=== PATIENT | male | born 1990 | race Hispanic/Latino ===

== ENCOUNTER 2018-09-04 08:26 | Emergency (ER) | payer SELFPAY ==
[~2018-09-04] VITALS: Ht 449.6 cm; Wt 93.0 kg
[2018-09-04 09:00] LABS: URINE BILIRUBIN - DIPSTICK NEGATIVE (NEGATIVE); URINE BLOOD DIPSTICK NEGATIVE (NEGATIVE); URINE COLOR YELLOW; URINE GLUCOSE - DIPSTICK NEGATIVE (NEGATIVE); URINE KETONE NEGATIVE (NEGATIVE); URINE LEUK ESTERASE NEGATIVE (NEGATIVE); URINE NITRITE - DIPSTICK NEGATIVE (Negative); URINE PROTEIN - DIPSTICK NEGATIVE (NEG-TRACE); URINE SPECIFIC GRAVITY 1.015; URINE UROBILINOGEN - DIPSTICK 0.2 E.U./dL (0.2)
[2018-09-04 09:04] LABS: URINE CLARITY CLEAR
[2018-09-04] MEDS ORDERED: KEFLEX500 M1 PO (09:11)
[2018-09-04] MEDS ORDERED: PYRIDIUM200 MG PO (09:11)
[2018-09-04 09:24] VITALS: BP 135/77
== END 2018-09-04 09:25 | disposition home or self-care (01) | DRG 690 ==
LOC: ED 08:26
PROVIDERS: Emergency Medicine
DX: N34.2 Other urethritis (principal); R30.0 Dysuria

== ENCOUNTER 2018-11-02 17:27 | Emergency (ER) | payer SELFPAY ==
[~2018-11-02] VITALS: Ht 175.3 cm; Wt 93.4 kg
[~2018-11-02 17:27] MED LIST: KEFLEX500 M1 PO; PYRIDIUM200 MG PO
[2018-11-02 18:25] LABS: HEMATOCRIT 46.9 % (39.0-50.0); HEMOGLOBIN 15.8 g/dl (14.0-18.0); IMMATURE GRANULOCYTES 0.4 % (0.0-5.0); MEAN CORPUSCULAR HGB 27.3 pG CALC (26.0-32.0); MEAN CORPUSCULAR HGB CONC 33.7 g/L CALC (32.0-36.0); NEUT# 5.13 thou/uL (1.82-7.42); RED BLOOD COUNT 5.79 mill/uL (4.70-6.10); RED CELL DISTRI WIDTH 13.2 % (11.5-15.5)
[2018-11-02 18:27] LABS: URINE BILIRUBIN - DIPSTICK NEGATIVE (NEGATIVE); URINE BLOOD DIPSTICK NEGATIVE (NEGATIVE); URINE COLOR YELLOW; URINE GLUCOSE - DIPSTICK NEGATIVE (NEGATIVE); URINE KETONE NEGATIVE (NEGATIVE); URINE LEUK ESTERASE NEGATIVE (NEGATIVE); URINE NITRITE - DIPSTICK NEGATIVE (Negative); URINE PROTEIN - DIPSTICK NEGATIVE (NEG-TRACE); URINE UROBILINOGEN - DIPSTICK 0.2 E.U./dL (0.2)
[2018-11-02 18:44] LABS: ALBUMIN 4.9 g/dL (3.2-5.0); ALKALINE PHOSPHATASE 105 u/l (38-126); ANION GAP 15 (6-22 (CALC)); BILIRUBIN, TOTAL 0.9 mg/dL (0.0-1.4); BUN 18 mg/dL (9-20); BUN/CREATININE RATIO 15 (12-20 (CALC)); CARBON DIOXIDE 29 mmol/l (22-30); CHLORIDE 101 mmol/l (95-108); CREATININE 1.1 mg/dL (0.7-1.3); GFR > 60 ML/MIN (>=60 (CALC)); GFR FOR AFR.AMER. > 60 ML/MIN (>=60 (CALC)); LIPASE 86 u/l (23-300); POTASSIUM 3.4 mmol/l (3.5-5.1); SGOT/AST 20 u/l (17-59); SODIUM 141 mmol/l (137-146)
[2018-11-02] MEDS ORDERED: PREVACID30 M3 PO (19:45)
[2018-11-02] MEDS ORDERED: ZOFRAN ODT4 MG PO (19:45)
[2018-11-02 20:10] VITALS: BP 132/74
== END 2018-11-02 20:00 | disposition home or self-care (01) | DRG 392 ==
LOC: ED 17:27
PROVIDERS: Family Medicine
DX: K29.70 Gastritis, unspecified, without bleeding (principal)